=== PATIENT | female | born 1955 | race Caucasian/White ===

== ENCOUNTER 2017-02-22 09:18 | Emergency (ER) | payer OTHER ==
[~2017-02-22] VITALS: Ht 185.4 cm; Wt 75.0 kg
--- NOTE | 2017-02-22 09:24 | ED.REPORT ---
HPI-General Illness Date of Service February 22, 2017 ED Provider: Patient is a 61 year old female with history of subclinical hyperthyroidism and thyroid nodule who presents to [facility] ED accompanied by her complaining of rapid heart rate this morning and near syncopy episode. Patient states she woke up at 5 am and immediately felt heart palpitations accompanied by shaking. It did not last long however, so she had a breakfast with her around 8 am and when she stood up and went to the kitchen counter she felt weak and almost fainted. Patient denies chest pain, shortness of breath, diaphoresis, dysphagia, nausea, vomiting, diarrhea, dysuria, tremors, anxiety. She does report mild tongue and bilateral cheek tingling while in ED, unintentional weight loss, about 7 pounds, and intermittent recurrent cough. Otherwise, patient is feeling well and denies other symptoms. Nursing Notes Stated Complaint: FAINTED/RAPID HEART RATE Nursing Notes Reviewed: Yes Allergies: Coded Allergies: No Known Allergies (Unverified , 02/22/17) Scheduled Propranolol HCl (Propranolol HCl) 10 Mg Tablet 10 MG PO QID General Time Seen by MD: 09:24 Chief Complaint Other (rapid heart rate) Hx Obtained From: Patient, Spouse Arrived By: Walk-in Sudden in Onset?: Yes Onset Occurred: 1 - 4 hours ago Symptom Duration: 16 - 30 minutes Recent Healthcare: Recent doctor visit (Augie, 01/31/17) Past Medical History Subclinical hyperthyroidism Thyroid nodule Past Surgical History Reports: Appendectomy, Cataract surgery, Hysterectomy Smoking History Never Smoker Social History Alcohol Use: Denies alcohol use Drug Use: Denies drug use Ambulatory Status Independent Review of Systems Full Review of Systems Constitutional: Reports: Recent wt loss, Denies: Fatigue, Fever, Lethargy, Malaise Respiratory: Denies: Dyspnea on exertion, Shortness of breath, Wheezing Cardiovascular: Reports: Palpitations, Denies: Chest pain, Edema GI: Denies: Abdominal pain, Constipation, Diarrhea, Dysphagia, Nausea, Vomiting Female: Denies: Dysuria, Pelvic pain, Urinary frequency Musculoskeletal: Denies: Back pain, Extremity pain Endocrine: Reports: Weight loss Skin: Denies Diaphoresis, Denies Rash Neurologic: Reports: Lightheaded, Denies: Confusion, Dizziness, Focal weakness, Problem walking, Slurred speech , Unable to speak, Vision change Psychiatric: Denies: Anxiety Physical Exam Vital Signs Vital Signs Date Time Temp Pulse Resp B/P Pulse Ox O2 Delivery O2 Flow Rate FiO2 02/22/17 11:53 83 19 129/80 98 Room Air 02/22/17 09:49 102 20 121/89 97 Room Air 02/22/17 09:27 36.8 105 23 127/78 98 Room Air Initial VS: Reviewed, Vital signs abnormal (Pulse 105, respiration rate 23) General/Constitutional: Awake, Alert, No acute distress, Well appearing, Well developed, Well hydrated, Well nourished, Cooperative Head / Eyes: Atraumatic, Normocephalic, PERRL, EOMI, No nystagmus, No periorbital swelling, No photophobia, Conjunctiva NL ENT: Atraumatic, Mucous membranes moist, Pharynx NL, Nose exam NL, No sinus tenderness, No facial swelling Soft Tissue Neck: Positive: Thyroid mass L (pronounced left sided mass, anterior aspect of patient's throat, about 5x3 cm) Respiratory / Chest: Atraumatic, Breath sounds NL, Breath sounds = bilat, No respiratory distress, No wheezing Cardiovascular: Regular rhythm, Heart sounds NL Heart Rate / Rhythm: Positive: Tachycardia Abdomen: Atraumatic, Soft, Non-tender Upper Extremities Upper Extremity / MS: Full range of motion, No swelling, Neurologic intact, Vascular intact Lower Extremity / Pelvis / MS: No swelling, Non-tender, No erythema, Neurologic intact, Vascular intact Skin: Warm, Dry, Intact Neurologic: Oriented X3, Speech NL, No motor deficits, No sensory deficits, CN II - XII intact, Memory NL, Gait NL Psychiatric: Affect NL, Mood NL Interpretation & Diagnostics Lab Results Interpretation Result Diagram: 02/22/1730 02/22/17 0930 Test 02/22/17 09:30 White Blood Count 7.7th/mm3 (3.8-10.1) Red Blood Count 5.78mil/mm3 (3.90-5.20) Hemoglobin 16.9g/dL (12.0-15.6) Hematocrit 48.7% (35.0-46.0) Mean Corpuscular Volume 84.3fL (81-100) Mean Corpuscular Hemoglobin 29.2pg (27.0-35.0) Mean Corpuscular Hemoglobin Concent 34.7% (32.0-37.0) Red Cell Distribution Width 12.2% (12.3-15.4) Platelet Count 326bil/L (150-400) Neutrophils (%) (Auto) 55.9% (40-74) Lymphocytes (%) (Auto) 33.1% (14-46) Monocytes (%) (Auto) 7.8% (4-12) Eosinophils (%) (Auto) 2.5% (0-5) Basophils (%) (Auto) 0.4% (0-3) Urine Color Yellow (YELLOW) Urine Appearance Clear (CLEAR,HAZY) Urine pH 5.0 (5.0-8.0) Urine Specific [place] 1.014 (1.003-1.035) Urine Protein Negativemg/dL (NEG,TRACE) Urine Glucose (UA) Negativemg/dL (NEGATIVE) Urine Ketones Negativemg/dL (NEGATIVE) Urine Occult Blood Negative (NEGATIVE) Urine Nitrite Negative (NEGATIVE) Urine Bilirubin Negative (NEGATIVE) Urine Urobilinogen Normalmg/dL (NORMAL) Urine Leukocyte Esterase Moderate (NEGATIVE) Urine RBC 0-2/hpf (0-2) Urine WBC >50/hpf (0-5) Urine Epithelial Cells Few/hpf (NONE-MOD) Urine Crystals None seen (NONE SEEN) Urine Bacteria Few/hpf (NONE-FEW) Urine Hyaline Casts None/lpf (NONE) Urine Granular Casts None seen (NONE SEEN) Urine Waxy Casts None seen (NONE SEEN) Urine Red Blood Cell Casts None seen (NONE SEEN) Urine White Blood Cell Casts None seen (NONE SEEN) Urine Mucus None seen (None Seen) Urine Trichomonas None seen (NONE SEEN) Urine Yeast None (NONE SEEN) Urinalysis Comment None Urine Culture Reflexed Indicated Sodium Level 139mEq/L (134-144) Potassium Level 4.0mEq/L (3.5-5.2) Chloride Level 100mEq/L (97-108) Carbon Dioxide Level 24mmol/L (18-29) Blood Urea Nitrogen 17mg/dL (8-27) Creatinine 0.47mg/dL (0.57-1.00) Estimat Glomerular Filtration Rate 193mL/min (>59) Glucose Level 132mg/dL (60-99) Calcium Level 9.7mg/dL (8.5-10.1) Magnesium Level 2.0mg/dL (1.6-2.6) Total Bilirubin 0.6mg/dL (0.0-1.2) Aspartate Amino Transf (AST/SGOT) 14U/L (0-50) Alanine Aminotransferase (ALT/SGPT) 10U/L (0-32) Alkaline Phosphatase 71U/L (25-165) Troponin T 0.010ug/L (0.0-0.011) Total Protein 6.8g/dL (6.4-8.4) Albumin 4.4g/dL (3.4-5.0) Thyroid Stimulating Hormone (TSH) 0.005uIU/mL (0.450-4.500) Free Thyroxine 2.03ng/dL (0.82-1.77) Hold Walters Top Tube Received (Received) Lab values outside NL range: no clinical significance. Lab Results Interpretation: TSH and free T4 elevated at 2.03 and 0.005 respectively, consistent with patient's history of hyperthyroidism Point of Care Testing: Urinalysis abnormal ECG Interpretation Interpreted by: ED physician Normal ECG Interpretation: Normal ECG w/ rate of... (96) CBC Interpretation CBC normal BMP / CMP Interpretation BMP/CMP normal Urinalysis Interpretation Positive leukocyte est, Positive WBC's, Positive bacteria X-Ray Chest Interpretation Chest Xray Interpretation: No acute cardiopulmonary process Interpretation / Wet Read by: Interpret - Radiologist Re-Eval/Medical Decision Med Decision/Clinical Course Patient is a 61 year old female with history of subclinical hyperthyroidism and thyroid nodule who presented to ED with rapid heart rate. Patient's laboratory work up is unremarkable, EKG is negative, chest x-ray is normal. Patient was given normal saline, 1 L, IV and Propranolol, 20 mg, orally. Patient responded well to medical therapy. Her symptoms are most likely related to her hyperthyroidism. Her TSH is 0.005 and free T4 2.03. Patient is undergoing a full work up of her very pronounced thyroid nodule. Patient remained hemodynamically stable, with improved heart rate while in ED. She was given a prescription for Propranolol, 10 mg QID daily with the goal to keep her heart rate controlled. She will follow up with her PCP within a week to discuss the response to beta-oli therapy. Her UA was positive for leukocyte esterase , white blood cells and bacteria, so we sent urine for culture. Since she is asymptomatic, we decided not to treat her unless her culture comes back positive. Patient was discharged in a stable condition. Counseled Regarding: Diagnosis, Lab results, Need for follow-up, When/why to return to ED Discharge & Departure Shift Change Sign-Out Response to Therapy: Improved Primary Impression: Tachycardia Additional Impressions: Hyperthyroidism Asymptomatic bacteriuria Disposition: Home Discharge Condition Condition: Stable Additional Instructions: Thank you for seeking care at Emergency Department today. Your work up did not reveal any life threatening conditions. We believe the reason for your rapid heart rate is dehydration and underlying hyperthyroidism. You are given a prescription for Propranolol, a beta-oli, for heart rate control and symptoms such as palpitations, anxiety, tremor. Please take it as directed. The dose can be gradually increased until symptoms and pulse are controlled. We sent your urine for culture. If it comes back positive, you will receive a phone call and will be started on an antibiotic to treat urinary tract infection. Please make a follow up appointment with you primary care provider within a week. Come back to Emergency Department if you develop new symptoms or your symptoms worsen. Thank you for letting us partake in your care today. Referrals: Rebeca Wesley (PCP) EDSupervising Provider for APC: Zi Lozano MD Attending Statement Attending attestation: I saw this patient in conjunction with the above named resident. I was present for all kimbrough portions of the history taking and physical examination. I agree with the workup, evaluation, treatment and disposition. Zi Lozano MD copies to: Alirio Ghosh Beck O MD February 22, 2017 09:24 Namita Osuna DO February 22, 2017 10:17
[2017-02-22 09:27] VITALS: BP 127/78; PULSE 105; RESP 23; O2SAT 98
[2017-02-22 09:49] VITALS: BP 121/89; PULSE 102; RESP 20; O2SAT 97
[2017-02-22 10:00] LABS: BASOPHILS % (AUTO) 0.4 % (0-3); EOSINOPHILS % (AUTO) 2.5 % (0-5); MONOCYTES % (AUTO) 7.8 % (4-12); Mean Corpuscular Hemoglobin 29.2 pg (27.0-35.0); Mean Corpuscular Volume 84.3 fL (81-100); NEUTROPHILS % (AUTO) 55.9 % (40-74); Platelet Count 326 bil/L (150-400)
[2017-02-22 10:10] LABS: TROPONIN T 0.01 ug/L (0.0-0.011)
[2017-02-22 10:15] LABS: APPEARANCE,URINE CLEAR (CLEAR,HAZY); COLOR,URINE YELLOW (YELLOW); OCCULT BLOOD,URINE NEGATIVE (NEGATIVE); UROBILINOGEN,URINE NORMAL (NORMAL)
--- NOTE | 2017-02-22 10:35 | DRSVH ---
PROCEDURE: X-RAY CHEST ONE VIEW, PORTABLE ([id number]) INDICATIONS: cp TECHNIQUE: One view of the chest was acquired. COMPARISON: None. FINDINGS: Surgical changes and devices: None. Lungs and pleura: No pleural effusions or pneumothorax. Lungs are clear. Mediastinum: Mediastinal contours appear normal. Heart size is normal. Bones and chest wall: No suspicious bony lesions. Overlying soft tissues appear unremarkable. IMPRESSION: No acute process. Dictated by: Tony Todd M.D. on 02/22/2017 at 10:33 Approved by: Tony Todd M.D. on 02/22/2017 at 10:33
[2017-02-22] MEDS ORDERED: 0.9% Sodium Chloride 1,000 ML IV ONE (10:45)
[2017-02-22 11:53] VITALS: BP 129/80; PULSE 83; RESP 19; O2SAT 98
[2017-02-22] MEDS ORDERED: PROP10TA8 PO (12:19)
== END 2017-02-22 12:29 | disposition home or self-care (01) ==
LOC: SED 09:18
DX: R00.0 Tachycardia, unspecified (principal); E05.90 Thyrotoxicosis, unspecified without thyrotoxic crisis or storm; R82.71 Bacteriuria
CPT/HCPCS: 36415; 71010; 80053; 81000; 82948; 83735; 84439; 84443; 84484; 85025; 87086; 87088; 93005; 96360; 99285; J7030